=== PATIENT | female | born 1940 | race Caucasian/White ===

== ENCOUNTER 2021-10-26 16:16 | Inpatient (IN) ==
[2021-10-26] MEDS ORDERED: 0.9 % Sodium Chloride 1,000 ML IVC ONE (16:43)
[2021-10-26 16:55] LABS: Bilirubin,Urine Negative (Negative); Blood,Urine Negative (Negative); Clarity,Urine Clear (Clear); Color,Urine Colorless (Yellow); Glucose,Urine (UA) Normal (Normal); Ketones,Urine Negative (Negative); Leukocyte Esterase,Urine Negative (Negative); Nitrite,Urine Negative (Negative); Protein,Urine Negative (Neg-Trace); Specific Gravity,Urine 1.005 (1.010-1.025); Urobilinogen,Urine Normal (Normal)
[2021-10-26 17:02] LABS: Basophils % 0.6 %; Eosinophils # 0.1 K/mcL (0.0-0.6); Eosinophils % 3.2 %; Hematocrit 34.1 % (35.3-44.9); Hemoglobin 10.5 g/dL (11.5-15.4); Immature Granulocytes % 1.3 % (0-4); Lymphocytes # 1.1 K/mcL (0.6-4.6); Mean Corpuscular HGB Conc 30.8 g/dL (31.6-35.5); Mean Corpuscular Hemoglobin 30.8 pg (28.0-33.3); Mean Platelet Volume 9.6 fL (9.4-12.4); Monocytes # 0.3 K/mcL (0.0-1.3); Monocytes % 10.6 %; Neutrophils # 1.6 K/mcL (1.6-8.9); Platelet Count 240 K/mcL (140-400); Red Blood Count 3.41 M/mcL (3.82-4.97); Red Cell Distribution Width 14.7 % (11.5-14.5); Segmented Neutrophils % 50.3 %; White Blood Count 3.1 K/mcL (4.3-11.1)
[2021-10-26 17:07] LABS: BUN/Creatinine Ratio 18 (6-26); Blood Urea Nitrogen 15 mg/dL (8-23); Calcium 9.1 mg/dL (8.6-10.3); Carbon Dioxide 18 mEq/L (23-29); Chloride 107 mEq/L (98-107); Glucose 175 mg/dL (70-105); Magnesium 1.4 mg/dL (1.6-2.6); Osmolality,Calculated 291 (280-300); Potassium 4.2 mEq/L (3.5-5.1); Sodium 138 mEq/L (136-145); eGFR For African Americans > 60 (> 60); eGFR For Non-African Americans > 60 (> 60)
[2021-10-26 17:08] LABS: Troponin I < 0.03 ng/mL (< 0.04)
[2021-10-26 17:10] LABS: INR 1.1; Prothrombin Time 11.9 Seconds (9.4-12.1)
[2021-10-26 17:13] LABS: Activated Partial Thrombo Time 36.1 Seconds (26.0-36.0)
[2021-10-26] MEDS ORDERED: Magnesium Sulfate 1 GM/102 ML PIGGYBACK IVPB ONE (18:14)
[2021-10-26] MEDS ORDERED: Melatonin 3 MG TABLET PO PRN (19:26)
[2021-10-26] MEDS ORDERED: Ondansetron 4 MG/2 ML VIAL IVP PRN (19:26)
[2021-10-26] MEDS ORDERED: Naloxone 0.4 MG/ML INJ IVP PRN (19:26)
[2021-10-26] MEDS ORDERED: D5% in Water 1,000 ML IVC PRN (19:39)
[2021-10-26] MEDS ORDERED: *HR* Dextrose 50 % in Water (Syg) 50 ML SYRINGE IVP PRN (19:39)
[2021-10-26] MEDS ORDERED: Dextrose Gel 15 GM/37.5 ML TUBE PO PRN ×2 (19:39)
[2021-10-26] MEDS ORDERED: Perflutren Lipid Microsphere 1.3 ML in 0.9 % Sodium Chloride 8.7 ML IVP PRN (19:56)
[2021-10-26] MEDS ORDERED: Metoprolol XL (24 HR) Succ 25 MG TAB.ER.24H PO ONE (20:29)
[2021-10-26] MEDS: Insulin LISPRO 300 UNITS/3 ML VIAL SUBQ SCH (20:44)
[2021-10-27] MEDS ORDERED: *HR* Heparin 5,000 UNIT/ML VIAL SQ SCH (06:00)
[2021-10-27] MEDS: Metoprolol XL (24 HR) Succ 25 MG TAB.ER.24H PO SCH (08:09)
[2021-10-27] MEDS: Aspirin 81 MG TAB.CHEW PO SCH (08:09)
[2021-10-27] MEDS: Insulin LISPRO 300 UNITS/3 ML VIAL SUBQ SCH ×4 (08:10→19:50)
[2021-10-27] MEDS ORDERED: *HR* Metoprolol 5 MG/5 ML VIAL IVP ONE (09:11)
[2021-10-27 09:29] LABS: Basophils % 0.6 %; Eosinophils # 0.1 K/mcL (0.0-0.6); Eosinophils % 2.3 %; Hematocrit 32.6 % (35.3-44.9); Immature Granulocytes % 0.3 % (0-4); Lymphocytes # 0.8 K/mcL (0.6-4.6); Lymphocytes % 27.1 %; Mean Corpuscular HGB Conc 30.7 g/dL (31.6-35.5); Mean Corpuscular Hemoglobin 30.6 pg (28.0-33.3); Mean Corpuscular Volume 99.7 fL (83.0-100.0); Mean Platelet Volume 9.3 fL (9.4-12.4); Monocytes # 0.3 K/mcL (0.0-1.3); Monocytes % 10.6 %; Neutrophils # 1.8 K/mcL (1.6-8.9); Platelet Count 228 K/mcL (140-400); Red Blood Count 3.27 M/mcL (3.82-4.97); Red Cell Distribution Width 14.8 % (11.5-14.5); Segmented Neutrophils % 59.1 %; White Blood Count 3.1 K/mcL (4.3-11.1)
[2021-10-27 09:53] LABS: Alanine Aminotransferase 5 Units/L (7-52); Albumin 3.7 g/dL (3.5-5.7); Albumin/Globulin Ratio 1.5 (1.1-2.2); Alkaline Phosphatase 48 Units/L (34-104); Aspartate Amino Transferase 13 Units/L (13-39); BUN/Creatinine Ratio 16 (6-26); Bilirubin,Total 0.3 mg/dL (0.3-1.0); Blood Urea Nitrogen 11 mg/dL (8-23); Calcium 8.6 mg/dL (8.6-10.3); Carbon Dioxide 22 mEq/L (23-29); Chloride 111 mEq/L (98-107); Globulin 2.4 g/dL (2.4-3.5); Glucose 138 mg/dL (70-105); Magnesium 1.5 mg/dL (1.6-2.6); Osmolality,Calculated 290 (280-300); Phosphorous 2.9 mg/dL (2.7-4.5); Potassium 4.3 mEq/L (3.5-5.1); Sodium 139 mEq/L (136-145); Total Protein 6.1 g/dL (6.4-8.9); eGFR For African Americans > 60 (> 60); eGFR For Non-African Americans > 60 (> 60)
[2021-10-27] MEDS ORDERED: Perflutren Lipid Microsphere 1.3 ML in 0.9 % Sodium Chloride 8.7 ML IVP PRN (10:48)
[2021-10-27] MEDS ORDERED: *HR* Heparin 5,000 UNIT/ML VIAL IVP PRN ×2 (11:52)
[2021-10-27 11:58] LABS: Troponin I < 0.03 ng/mL (< 0.04)
[2021-10-27] MEDS: Heparin 25,000UNIT/250ML 1/2NS 25,000 UNIT/250 ML IV.SOLN IVC SCH (12:31)
[2021-10-27 12:47] LABS: Hematocrit 33.5 % (35.3-44.9); Hemoglobin 10.2 g/dL (11.5-15.4); Mean Corpuscular HGB Conc 30.4 g/dL (31.6-35.5); Mean Corpuscular Hemoglobin 30.9 pg (28.0-33.3); Mean Corpuscular Volume 101.5 fL (83.0-100.0); Mean Platelet Volume 9.4 fL (9.4-12.4); Platelet Count 237 K/mcL (140-400); Red Cell Distribution Width 14.8 % (11.5-14.5); White Blood Count 3.4 K/mcL (4.3-11.1)
[2021-10-27 18:37] LABS: Heparin anti-factor XA UFH 0.4 IU/mL (0.30-0.70); INR 1.1; Prothrombin Time 12.4 Seconds (9.4-12.1)
[2021-10-28] MEDS ORDERED: *HR* Metoprolol 5 MG/5 ML VIAL IVP ONE (03:06)
[2021-10-28] MEDS: Metoprolol XL (24 HR) Succ 25 MG TAB.ER.24H PO SCH ×2 (08:00→20:40)
[2021-10-28] MEDS: DilTIAZem 50 MG/50 ML IV.SOLN IVC SCH ×2 (08:00→12:21)
[2021-10-28] MEDS: Aspirin 81 MG TAB.CHEW PO SCH (08:00)
[2021-10-28] MEDS: Insulin LISPRO 300 UNITS/3 ML VIAL SUBQ SCH ×4 (08:12→20:39)
[2021-10-28] MEDS: Heparin 25,000UNIT/250ML 1/2NS 25,000 UNIT/250 ML IV.SOLN IVC SCH (08:31)
[2021-10-28 12:58] LABS: Eosinophils # 0.1 K/mcL (0.0-0.6); Eosinophils % 1.7 %; Hematocrit 33.8 % (35.3-44.9); Hemoglobin 10.5 g/dL (11.5-15.4); Immature Granulocytes % 1.2 % (0-4); Lymphocytes # 1.3 K/mcL (0.6-4.6); Lymphocytes % 32.6 %; Mean Corpuscular HGB Conc 31.1 g/dL (31.6-35.5); Mean Corpuscular Hemoglobin 30.2 pg (28.0-33.3); Mean Corpuscular Volume 97.1 fL (83.0-100.0); Mean Platelet Volume 9.3 fL (9.4-12.4); Monocytes # 0.4 K/mcL (0.0-1.3); Monocytes % 9.5 %; Neutrophils # 2.2 K/mcL (1.6-8.9); Platelet Count 243 K/mcL (140-400); Red Blood Count 3.48 M/mcL (3.82-4.97); White Blood Count 4.1 K/mcL (4.3-11.1)
[2021-10-28 13:38] LABS: Alanine Aminotransferase 5 Units/L (7-52); Albumin 3.6 g/dL (3.5-5.7); Albumin/Globulin Ratio 1.4 (1.1-2.2); Alkaline Phosphatase 48 Units/L (34-104); Aspartate Amino Transferase 10 Units/L (13-39); BUN/Creatinine Ratio 19 (6-26); Bilirubin,Total 0.6 mg/dL (0.3-1.0); Blood Urea Nitrogen 13 mg/dL (8-23); Calcium 8.7 mg/dL (8.6-10.3); Carbon Dioxide 22 mEq/L (23-29); Chloride 107 mEq/L (98-107); Globulin 2.5 g/dL (2.4-3.5); Glucose 177 mg/dL (70-105); Magnesium 1.7 mg/dL (1.6-2.6); Osmolality,Calculated 290 (280-300); Potassium 4.1 mEq/L (3.5-5.1); Sodium 138 mEq/L (136-145); Total Protein 6.1 g/dL (6.4-8.9); eGFR For African Americans > 60 (> 60); eGFR For Non-African Americans > 60 (> 60)
[2021-10-29 03:16] LABS: Basophils % 0.5 %; Eosinophils # 0.1 K/mcL (0.0-0.6); Eosinophils % 2.9 %; Hemoglobin 9.9 g/dL (11.5-15.4); Lymphocytes # 1.4 K/mcL (0.6-4.6); Lymphocytes % 34.1 %; Mean Corpuscular HGB Conc 30.9 g/dL (31.6-35.5); Mean Corpuscular Hemoglobin 30.2 pg (28.0-33.3); Mean Corpuscular Volume 97.6 fL (83.0-100.0); Mean Platelet Volume 9.6 fL (9.4-12.4); Monocytes # 0.4 K/mcL (0.0-1.3); Monocytes % 8.6 %; Neutrophils # 2.2 K/mcL (1.6-8.9); Platelet Count 263 K/mcL (140-400); Red Blood Count 3.28 M/mcL (3.82-4.97); Red Cell Distribution Width 15.1 % (11.5-14.5); Segmented Neutrophils % 52.9 %; White Blood Count 4.2 K/mcL (4.3-11.1)
[2021-10-29 03:32] LABS: Alanine Aminotransferase 6 Units/L (7-52); Albumin 3.4 g/dL (3.5-5.7); Albumin/Globulin Ratio 1.3 (1.1-2.2); Alkaline Phosphatase 44 Units/L (34-104); Aspartate Amino Transferase 9 Units/L (13-39); BUN/Creatinine Ratio 20 (6-26); Bilirubin,Total 0.5 mg/dL (0.3-1.0); Blood Urea Nitrogen 16 mg/dL (8-23); Calcium 8.8 mg/dL (8.6-10.3); Carbon Dioxide 23 mEq/L (23-29); Chloride 108 mEq/L (98-107); Globulin 2.7 g/dL (2.4-3.5); Glucose 145 mg/dL (70-105); Magnesium 1.7 mg/dL (1.6-2.6); Osmolality,Calculated 292 (280-300); Potassium 3.8 mEq/L (3.5-5.1); Sodium 139 mEq/L (136-145); Total Protein 6.1 g/dL (6.4-8.9); eGFR For African Americans > 60 (> 60); eGFR For Non-African Americans > 60 (> 60)
[2021-10-29] MEDS: Heparin 25,000UNIT/250ML 1/2NS 25,000 UNIT/250 ML IV.SOLN IVC SCH (05:45)
[2021-10-29] MEDS ORDERED: Regadenoson 0.4 MG/5 ML SYRINGE IVP ONE (06:16)
[2021-10-29] MEDS: Insulin LISPRO 300 UNITS/3 ML VIAL SUBQ SCH ×4 (07:49→21:17)
[2021-10-29] MEDS: Metoprolol XL (24 HR) Succ 25 MG TAB.ER.24H PO SCH ×2 (08:39→21:15)
[2021-10-29] MEDS: DilTIAZem 50 MG/50 ML IV.SOLN IVC SCH ×2 (08:39→19:33)
[2021-10-29] MEDS: Aspirin 81 MG TAB.CHEW PO SCH (08:39)
[2021-10-30] MEDS: DilTIAZem 50 MG/50 ML IV.SOLN IVC SCH (02:40)
[2021-10-30] MEDS: Heparin 25,000UNIT/250ML 1/2NS 25,000 UNIT/250 ML IV.SOLN IVC SCH (04:00)
[2021-10-30] MEDS ORDERED: Regadenoson 0.4 MG/5 ML SYRINGE IVP ONE (07:04)
[2021-10-30] MEDS: Aspirin 81 MG TAB.CHEW PO SCH (09:51)
[2021-10-30] MEDS: Metoprolol XL (24 HR) Succ 25 MG TAB.ER.24H PO SCH ×2 (09:52→20:26)
[2021-10-30] MEDS: Insulin LISPRO 300 UNITS/3 ML VIAL SUBQ SCH ×4 (10:00→20:26)
[2021-10-30 10:30] LABS: Hemoglobin 9.6 g/dL (11.5-15.4)
[2021-10-30] MEDS: DilTIAZem CD (24hr) 240 MG CAP.ER.24H PO SCH (11:45)
[2021-10-30] MEDS ORDERED: Amiodarone Premix 150 MG/100 ML BAG IVPB ONE (16:20)
[2021-10-30] MEDS ORDERED: Amiodarone Premix 360 MG/200 ML BAG IVC ONE (16:40)
[2021-10-30 16:50] LABS: Heparin anti-factor XA UFH 0.41 IU/mL (0.30-0.70)
[2021-10-30 16:51] LABS: INR 1.1; Prothrombin Time 12.3 Seconds (9.4-12.1)
[2021-10-30] MEDS ORDERED: Warfarin perPT PO SCH (18:00)
[2021-10-30] MEDS ORDERED: *HR* Warfarin 2.5 MG TABLET PO ONE (18:30)
[2021-10-30] MEDS: Amiodarone Premix 360 MG/200 ML BAG IVC SCH (22:56)
[2021-10-31] MEDS: Heparin 25,000UNIT/250ML 1/2NS 25,000 UNIT/250 ML IV.SOLN IVC SCH (00:35)
[2021-10-31 07:40] LABS: INR 1.1; Prothrombin Time 12.8 Seconds (9.4-12.1)
[2021-10-31] MEDS: Metoprolol XL (24 HR) Succ 25 MG TAB.ER.24H PO SCH ×2 (08:38→20:02)
[2021-10-31] MEDS: DilTIAZem CD (24hr) 240 MG CAP.ER.24H PO SCH (08:38)
[2021-10-31] MEDS: Insulin LISPRO 300 UNITS/3 ML VIAL SUBQ SCH ×4 (08:39→20:03)
[2021-10-31 09:17] LABS: Basophils % 0.5 %; Eosinophils # 0.1 K/mcL (0.0-0.6); Eosinophils % 3.8 %; Hemoglobin 9.3 g/dL (11.5-15.4); Immature Granulocytes % 0.8 % (0-4); Lymphocytes # 0.9 K/mcL (0.6-4.6); Lymphocytes % 23.7 %; Mean Corpuscular Hemoglobin 30.5 pg (28.0-33.3); Mean Corpuscular Volume 98.4 fL (83.0-100.0); Mean Platelet Volume 9.7 fL (9.4-12.4); Monocytes # 0.4 K/mcL (0.0-1.3); Monocytes % 10.1 %; Neutrophils # 2.2 K/mcL (1.6-8.9); Platelet Count 264 K/mcL (140-400); Red Blood Count 3.05 M/mcL (3.82-4.97); Red Cell Distribution Width 15.2 % (11.5-14.5); Segmented Neutrophils % 61.1 %; White Blood Count 3.7 K/mcL (4.3-11.1)
[2021-10-31 09:32] LABS: BUN/Creatinine Ratio 24 (6-26); Blood Urea Nitrogen 18 mg/dL (8-23); Calcium 8.8 mg/dL (8.6-10.3); Carbon Dioxide 22 mEq/L (23-29); Chloride 106 mEq/L (98-107); Glucose 248 mg/dL (70-105); Magnesium 1.5 mg/dL (1.6-2.6); Osmolality,Calculated 294 (280-300); Phosphorous 3.3 mg/dL (2.7-4.5); Sodium 137 mEq/L (136-145); eGFR For African Americans > 60 (> 60); eGFR For Non-African Americans > 60 (> 60)
[2021-10-31] MEDS: Amiodarone Premix 360 MG/200 ML BAG IVC SCH ×2 (10:20→22:40)
[2021-10-31] MEDS: *HR* Amiodarone 200 MG TABLET PO SCH ×2 (11:36→20:01)
[2021-10-31] MEDS ORDERED: Apixaban 5 MG TABLET PO SCH (14:00)
[2021-10-31] MEDS ORDERED: *HR* Warfarin 2.5 MG TABLET PO ONE (18:00)
[2021-10-31] MEDS: Apixaban 5 MG TABLET PO SCH (20:01)
[2021-11-01 01:37] LABS: Hematocrit 27.3 % (35.3-44.9); Hemoglobin 8.5 g/dL (11.5-15.4); Mean Corpuscular HGB Conc 31.1 g/dL (31.6-35.5); Mean Corpuscular Hemoglobin 30.7 pg (28.0-33.3); Mean Corpuscular Volume 98.6 fL (83.0-100.0); Mean Platelet Volume 9.7 fL (9.4-12.4); Platelet Count 228 K/mcL (140-400); Red Blood Count 2.77 M/mcL (3.82-4.97); Red Cell Distribution Width 14.9 % (11.5-14.5); White Blood Count 3.9 K/mcL (4.3-11.1)
[2021-11-01 01:44] LABS: INR 1.4; Prothrombin Time 15.4 Seconds (9.4-12.1)
[2021-11-01 07:21] VITALS: TEMP 98.3
[2021-11-01] MEDS: DilTIAZem CD (24hr) 240 MG CAP.ER.24H PO SCH (08:30)
[2021-11-01] MEDS: *HR* Amiodarone 200 MG TABLET PO SCH (08:30)
[2021-11-01] MEDS: Apixaban 5 MG TABLET PO SCH (08:30)
[2021-11-01] MEDS: Metoprolol XL (24 HR) Succ 25 MG TAB.ER.24H PO SCH (08:30)
[2021-11-01] MEDS: Insulin LISPRO 300 UNITS/3 ML VIAL SUBQ SCH (08:31)
[2021-11-01 09:27] VITALS: BP 133/38; PULSE 64; O2SAT 74
== END 2021-11-01 10:39 | disposition home or self-care (01) | DRG 310 ==
LOC: 3BNU 16:16 → EMEROOARM 16:16 → 3BNU 19:38 → SUATTDRO 10-29 15:19 → 2NNU 10-30 16:14
PROVIDERS: ADMIT Internal Medicine; ATTEND Registered Nurse